=== PATIENT | female | born 1960 | race Caucasian/White ===

== ENCOUNTER 2017-01-08 18:14 | Emergency (ER) | payer OTHER ==
[2017-01-08 18:24] LABS: BASOPHILS 0.2 %; BASOPHILS ABSOLUTE 0.02 10/3/uL (0.0-0.16); EOSINOPHILS 0.5 %; EOSINOPHILS ABSOLUTE 0.05 10/3/uL (0.0-0.53); HEMATOCRIT 37.1 % (36.0-48.0); IMMATURE GRANULOCYTES 0.9 %; IMMATURE GRANULOCYTES ABSOLUTE 0.08 10/3/uL (0.0-0.11); LYMPHOCYTES 18.2 %; MANUAL DIFF NO %; MEAN CORPUS HGB CONC 32.3 g/dL (32.0-36.0); MEAN CORPUSCULAR HEMOGLOB 29.7 pg (26.0-34.0); MEAN CORPUSCULAR VOLUME 91.8 fL (80-100); MONOCYTES 8.9 %; MONOCYTES ABSOLUTE 0.83 10/3/uL (0.21-1.20); NEUTROPHILS 71.3 %; NEUTROPHILS ABSOLUTE 6.64 10/3/uL (2.02-8.40); PLATELET COUNT 280 10/3/uL (150-400); RBC DISTRIBUTION WIDTH 14.6 % (12.0-16.0); RED CELL COUNT 4.04 10/6/uL (4.0-5.6); WHITE BLOOD CELLS 9.3 10/3/uL (4.5-10.5)
[2017-01-08] MEDS ORDERED: WELLXL300 PO (18:25)
[2017-01-08] MEDS ORDERED: ESTRADIOL2 MG PO (18:26)
[2017-01-08] MEDS ORDERED: VITD PO (18:26)
[2017-01-08] MEDS ORDERED: Z5 PO (18:28)
[2017-01-08] MEDS ORDERED: CAT1 PO (18:29)
[2017-01-08] MEDS ORDERED: ROCALTROL 0.0.25 MCG PO (18:29)
[2017-01-08 18:30] LABS: ASCORBIC ACID (UR NOT ORDER) NEG (NEG); BILIRUBIN, URINE NEGATIVE (NEG); ER URINALYSIS TAT 0 Hrs 10 Mins; KETONE, URINE NEGATIVE (NEG); LEUKOCYTE ESTERASE(NOT OR TRACE (NEG); NITRITE (URINE) NEG (NEG); WBC (NOT ORDERED) (RFLEX) 18 (0-5)
[2017-01-08] MEDS ORDERED: FERROUS SULF325 M1 PO (18:30)
[2017-01-08] MEDS ORDERED: P10 PO (18:31)
[2017-01-08] MEDS ORDERED: APRES25 PO (18:31)
[2017-01-08] MEDS ORDERED: MSCONT15 PO (18:31)
[2017-01-08] MEDS ORDERED: CLARIT10 PO (18:31)
[2017-01-08] MEDS ORDERED: ZOFRAN4 PO (18:31)
[2017-01-08] MEDS ORDERED: HALF81 PO (18:32)
[2017-01-08] MEDS ORDERED: DSS PO (18:32)
[2017-01-08] MEDS ORDERED: CELEXA20 PO (18:32)
[2017-01-08] MEDS ORDERED: NORV5 PO (18:32)
[2017-01-08] MEDS ORDERED: THERGRANM PO (18:32)
[2017-01-08] MEDS ORDERED: ATV.5 PO (18:33)
[2017-01-08] MEDS ORDERED: ANTIBIOTIC (18:33)
[2017-01-08] MEDS ORDERED: OXYCOD PO (18:34)
[2017-01-08 18:39] LABS: A/G RATIO 0.9 (0.7-1.9); ALKALINE PHOSPHATASE 70 U/L (45-117); BUN (BLOOD UREA NITROGEN) 72 MG/DL (6-23); CALCIUM, SERUM 8.5 MG/DL (8.5-10.4); CHLORIDE, SERUM 103 MMOL/L (96-112); CO2 (CARBON DIOXIDE) 29 MMOL/L (24-34); CREATININE 1.92 MG/DL (0.55-1.02); GFR AFRICAN AMERICAN 33 ML/MIN (>=60); GFR NON AFRICAN AMERICAN 29 ML/MIN (>=60); GLOBULIN 3.5 G/DL (2.5-4.1); GLUCOSE, SERUM 91 MG/DL (60-99); POTASSIUM, SERUM 3.6 MMOL/L (3.5-5.3); SGOT(AST) 14 U/L (5-40); SGPT(ALT) 18 U/L (5-65); SODIUM, SERUM 142 MMOL/L (135-148); TOTAL BILIRUBIN 0.5 MG/DL (0-1.2); TOTAL PROTEIN 6.5 G/DL (6.0-8.5)
== END 2017-01-08 22:53 | disposition short-term general hospital (02) ==
LOC: ER 18:14
PROVIDERS: Physician Assistant
DX: K56.60 Unspecified intestinal obstruction (principal); I12.9 Hypertensive chronic kidney disease with stage 1 through stage 4 chronic kidney disease, or unspecified chronic kidney disease; N18.9 Chronic kidney disease, unspecified; K21.9 Gastro-esophageal reflux disease without esophagitis; Z90.710 Acquired absence of both cervix and uterus; Z88.8 Allergy status to other drugs, medicaments and biological substances; Z79.82 Long term (current) use of aspirin; Z79.899 Other long term (current) drug therapy
CPT/HCPCS: 74176; 80053; 81001; 83690; 85025; 99285